=== PATIENT | male | born 1950 | race Caucasian/White ===

== ENCOUNTER 2016-12-10 04:47 | Inpatient (IN) | payer BC, OTHER ==
[2016-11-15 12:56] VITALS: BMI 38.0
--- NOTE | 2016-11-15 13:43 | PAT Medication Instructions ---
Service Date November 15, 2016. Current Home Medication List Canagliflozin (Invokana), 1 TAB PEG QAM Fluticasone Propionate (Nasal) (Flonase Allergy Relief), 2 SPRAY ELLIOT QAM Furosemide (Lasix), 20 MG PO BID Glipizide (Glucotrol), 5 MG PO QAM Glycopyrrolate (Glycopyrrolate), 1 TAB PO BID Krill Oil (Krill Oil), 1 CAP PO QPM Liraglutide (Victoza), 1.2 MG SQ QAM Meloxicam (Mobic), 15 MG PO QAM Sitagliptin Phosphate (Januvia), 100 MG PO QPM [Claritin D], 1 TAB PO QAM [Clotrimazole Beta Cr], 1 APPLN TOP UD PRN for PRN [Dr.cherry Rustam Corbett], 1 PKT PO QAM Medication Instructions For Your Scheduled Surgery Dr.Cherry Rustam Corbett 1 PKT PO QAM (take as directed) - Hold the following medications 2 weeks prior to surgery: Krill Oil (Krill Oil), 1 CAP PO QPM - Hold the following medications 7-10 days prior to surgery per surgeon instructions: Meloxicam (Mobic), 15 MG PO QAM - Hold the following medications 24 hours prior to surgery: Clotrimazole Beta Cr, 1 APPLN TOP UD PRN for PRN - Hold the following medications the morning of surgery: Sitagliptin Phosphate (Januvia), 100 MG PO QPM Claritin D 1 TAB PO QAM Glycopyrrolate (Glycopyrrolate), 1 TAB PO BID Glipizide (Glucotrol), 5 MG PO QAM Furosemide (Lasix), 20 MG PO BID Canagliflozin (Invokana), 1 TAB PO QAM - Take the following medications the morning of surgery with a sip of water: Liraglutide (Victoza), 1.2 MG SQ QAM Fluticasone Propionate (Nasal) (Flonase Allergy Relief), 2 SPRAY ELLIOT QAM - Take the following medications as scheduled the night before surgery: Glycopyrrolate (Glycopyrrolate), 1 TAB PO BID Furosemide (Lasix), 20 MG PO BID If you have any questions please call us at [phone] or [phone] ( [place]) or [phone]
--- NOTE | 2016-11-15 14:50 | DIAGNOSTIC IMAGING REPORT ---
CHEST 2 VIEWS ROUTINE HISTORY: Preop. COMPARISON: None. FINDINGS: No focal lung consolidations to suggest pneumonia. No evidence for pulmonary edema. Degenerative changes within the thoracic spine. No pleural effusions. No pneumothorax. The right lung is clear. Possible 8 mm nodule within the left midlung zone. The heart is normal in size. IMPRESSION: Possible 8 mm nodule within the left midlung zone. Recommend shallow oblique views of the chest for further evaluation. Otherwise, no acute process within the chest. Electronically signed by: Fernando Banda M.D. 11/15/2016 2:49 PM Dictated Date/Time: 11/15/2016 2:47 PM
[2016-11-15 14:52] LABS: URINE APPEARANCE CLEAR (CLEAR); URINE BILIRUBIN NEG (NEG); URINE COLOR YELLOW; URINE NITRITE NEG (NEG); URINE PH 6.5 (4.5-7.5); URINE SPECIFIC GRAVITY 1.029 (1.000-1.030); UROBILINOGEN NEG (NEG); ZZUR CULT IF INDIC CLEAN CATCH NO
[2016-11-15 14:53] LABS: MANUAL MICROSCOPIC REQUIRED? NO; REVIEW REQ? NO
[2016-11-15 14:56] LABS: PARTIAL THROMBOPLASTIN RATIO 1.2; PROTHROMBIN TIME (PATIENT) 10.9 SECONDS (9.0-12.0)
--- NOTE | 2016-12-07 12:57 | HISTORY & PHYSICAL EXAMINATION ---
DATE OF ADMISSION: 12/10/2016 CHIEF COMPLAINT: Right hip pain. HISTORY OF PRESENT ILLNESS: Bob is a 66-year-old male with a 1-year history of right hip pain. The patient rates his pain as 10/10. He has pain with his daily activities. He has limited standing and walking tolerance. Pain is worse with weightbearing. The patient takes anti-inflammatories with minimal relief. He is unable to exercise due to the pain. He has failed conservative treatment and is scheduled for right hip replacement. PAST MEDICAL HISTORY: Diabetes with an A1c of 7.8 and hypertension. He denies heart disease or DVT. PAST SURGICAL HISTORY: Hernia repair, bilateral knee arthroscopy, and bilateral wrist surgery. SOCIAL HISTORY: The patient denies alcohol or tobacco use. He lives in a single story home. He lives alone and is retired. FAMILY HISTORY: Negative for DVT. MEDICATIONS: Januvia 100 mg daily, glycopyrrolate 1 mg twice daily, Invokana 300 mg daily, furosemide 20 mg b.i.d., glipizide 5 mg daily, Claritin 1 tablet daily, meloxicam 15 mg daily, Krill oil 1 daily, fluticasone 50 mcg, and Victoza 1.2 mg daily. ALLERGIES: PENICILLIN AND SULFA. REVIEW OF SYSTEMS: See HPI. Ten other systems reviewed, all negative. PHYSICAL EXAMINATION: VITAL SIGNS: Height 5 feet 9 inches, weight 264 pounds, and BMI is 39. GENERAL: This is a well-developed and well-nourished male, who is alert and oriented x3. Mood and affect are appropriate. HEENT: Normocephalic and atraumatic. Mucous membranes are moist and intact. NECK: Supple without lymphadenopathy. HEART: Regular rate and rhythm without murmurs, rubs or gallops. LUNGS: Clear to auscultation without wheezes or rhonchi. ABDOMEN: Soft and nontender. Bowel sounds are equal and active. EXTREMITIES: No ecchymosis, redness or warmth. Log roll of the hip reproduces the pain in the groin. Range of motion is decreased. He is neurovascularly intact with +5/5 strength. He has +1 distal edema. X-RAY: AP and lateral views show joint space narrowing and osteophyte formation of the right hip. IMPRESSION: 1. Degenerative joint disease, right hip. 2. Diabetes type 2. 3. Morbid obesity. PLAN: The patient will be admitted for a right total hip arthroplasty. We will plan on aspirin for DVT prophylaxis. PCP is Dr. Ashwin Rey at [facility]. He will need home therapy postoperatively.
[~2016-12-10] VITALS: Ht 177.8 cm; Wt 116.0 kg
[2016-12-10] VITALS (11 sets, daily range): BP systolic 115–144; BP diastolic 70–94; PULSE 88–107; TEMP 36.6–37.4; O2SAT 78–98; Ht 177.8 cm; Wt 116.0 kg
[~2016-12-10 04:47] MED LIST: CANA1TAB3 PEG; CLARITIN D PO; FLUT0.15 NAE; FURO-85 PO; GLIP5TAB11 PO; GLYC1TAB19 PO; KRIL1000 PO; LIRA18IN SQ; MELO7.5T5 PO; SITA100T3 PO; [UNRECOGNIZED DRUG - OTHER] PO; [UNRECOGNIZED DRUG - OTHER] TOP
[2016-12-10] MEDS ORDERED: POLYMYXIN B SULFATE 100,000 UNITS in NSS 100ML IR SCH (06:00)
[2016-12-10] MEDS ORDERED: OXYCODONE HCL 10 MG TABCR (OXYCONTIN) PO SCH (06:00)
[2016-12-10] MEDS ORDERED: GABAPENTIN 300 MG CAP PO SCH (06:00)
[2016-12-10] MEDS ORDERED: METOCLOPRAMIDE HCL 10 MG TAB PO SCH (06:00)
[2016-12-10] MEDS ORDERED: ROPIVACAINE 5MG/ML 30 ML 150 MG, BUPIVACAINE/EPINEPHR 0.5% MPF 30 ML, KETOROLAC TROMETH... INFIL SCH ×6 (06:00)
[2016-12-10] MEDS ORDERED: VANCOMYCIN INJ 400 MG in NSS 100ML IR SCH (06:00)
[2016-12-10] MEDS ORDERED: CeleBREX 200 MG CAP PO SCH (06:00)
[2016-12-10] MEDS ORDERED: FAMOTIDINE 20 MG TAB PO SCH (06:00)
[2016-12-10] MEDS ORDERED: LACTATED RINGER'S 1000ML 1,000 ML IV SCH (06:00)
[2016-12-10] MEDS ORDERED: DEXAMETHASONE 4 MG TAB PO SCH (06:00)
[2016-12-10] MEDS ORDERED: ACETAMINOPHEN 500 MG TAB PO SCH (06:00)
[2016-12-10] MEDS ORDERED: CEFAZOLIN 2000 MG/60 ML D5W 60 ML IV SCH (06:00)
[2016-12-10] MEDS: TRANEXAMIC ACID INJ 1,000 MG in SODIUM CHLORIDE 0.9% 100ML 100 ML IV SCH ×2 (06:29→10:47)
[2016-12-10] MEDS ORDERED: POVIDONE-IODINE OP SOLN 30 ML BTL ONE (06:30)
[2016-12-10] MEDS ORDERED: ORTHO JOINT ANESTHETIC ONE (06:30)
[2016-12-10] MEDS ORDERED: BACITRACIN 50000 UNIT VIAL ONE (06:30)
[2016-12-10] MEDS ORDERED: MIDAZOLAM HCL 1 MG/ML 2ML VIAL ONE ×5 (06:33→09:13)
[2016-12-10] MEDS ORDERED: FENTANYL CITRATE INJ 50 MCG/1 ML 2 ML VIAL ONE (06:35)
--- NOTE | 2016-12-10 06:47 | History & Physical Bridge Note ---
H&P Re-Evaluation Bridge Note: I have examined the patient, reviewed the History & Physical and in the interval since the performance of the History & Physical I have noted the following changes of clinical significance: No changes noted
[2016-12-10] MEDS ORDERED: ONDANSETRON INJ 2 MG/ML 2 ML VIAL IV PRN ×2 (07:15→08:45)
[2016-12-10] MEDS ORDERED: ATROPINE SULFATE 0.1 MG/ML 5ML SYR IV PRN (07:15)
[2016-12-10] MEDS ORDERED: EpHEDrine SULFATE INJ 50 MG/ML AMP IV PRN (07:15)
[2016-12-10] MEDS ORDERED: FENTANYL CITRATE INJ 50 MCG/1 ML 2 ML VIAL IV PRN (07:15)
--- NOTE | 2016-12-10 08:40 | [facility] Post Operative Brief Note ---
Immediate Operative Summary Operative Date Dec 10, 2016. Pre-Operative Diagnosis Right Hip Degenerative Joint Disease Post-Operative Diagnosis Right Hip Degenerative Joint Disease Procedure(s) Performed Right Total Hip Arthroplasty, Direct Anterior Approach Surgeon Dr. Jorge Frias Instrument Calibrator Surgeon(s) Nyasia Jimenez PA-C Estimated Blood Loss 200 mL Findings severe dz Specimens A: Right Femoral Head Complication(s) None Disposition Recovery Room / PACU
[2016-12-10] MEDS ORDERED: BISACODYL 10 MG SUPP PR PRN (08:45)
[2016-12-10] MEDS ORDERED: SOD PHOSPHATE/SOD BIPHOSPHATE ENEMA 132 ML BTL PR PRN (08:45)
[2016-12-10] MEDS ORDERED: CLOTRIMAZOLE 1% CR 15 GM TUBE EXT PRN (08:45)
[2016-12-10] MEDS ORDERED: METOCLOPRAMIDE HCL INJ 5 MG/ML 2 ML VIAL IV PRN (08:45)
[2016-12-10] MEDS ORDERED: ALUMINUM/MAGNESIUM/SIMETH (MAALOX MAX) 30 ML UDC PO PRN (08:45)
[2016-12-10] MEDS ORDERED: DiphenhydrAMINE HCL 50 MG/ML VIAL IV PRN (08:45)
[2016-12-10] MEDS ORDERED: OXYCODONE HCL IR 5 MG TAB (IMMEDIATE RELEASE) PO PRN (08:45)
[2016-12-10] MEDS ORDERED: MoRPHine SULFATE 2 MG/ML CARP IV PRN (08:45)
[2016-12-10] MEDS ORDERED: ZOLPIDEM TARTRATE 5 MG TAB PO PRN (08:45)
[2016-12-10] MEDS ORDERED: MAGNESIUM HYDROXIDE SUSP 30 ML UDC PO PRN (08:45)
--- NOTE | 2016-12-10 08:52 | DIAGNOSTIC IMAGING REPORT ---
RIGHT HIP UNILATERAL 1 VIEW CLINICAL HISTORY: RT ANTERIOR Right COMPARISON: None. DISCUSSION: Total right hip replacement. Good contact between prosthetic and underlying bone. Expected soft tissue postoperative change. IMPRESSION: Anatomic alignment status post total right hip replacement Electronically signed by: Yasmany Bryant M.D. 12/10/2016 8:51 AM Dictated Date/Time: 12/10/2016 8:47 AM
[2016-12-10] MEDS ORDERED: NON-FORMULARY MEDICATION (Canagliflozin (Invokana) 1 TAB) PEG SCH (09:00)
[2016-12-10] MEDS ORDERED: LIRAGLUTIDE 1.2 MG SQ SCH (09:00)
[2016-12-10] MEDS ORDERED: PHARMACY GLYCEMIC MGMT CONSULT PRN (09:22)
[2016-12-10] MEDS ORDERED: GLUCAGON FOR INJ 1 MG VIAL SQ PRN (09:30)
[2016-12-10] MEDS ORDERED: GLUCOSE 10 TABS/TUBE PO PRN (09:30)
[2016-12-10] MEDS ORDERED: DEXTROSE 50% 50 ML SYR IV PRN (09:30)
[2016-12-10] MEDS ORDERED: GLUCOSE 40% GEL 15 GM TUBE PO PRN (09:30)
--- NOTE | 2016-12-10 09:38 | Anesthesiology Progress Note ---
Anesthesia Post Op Note Date & Time Dec 10, 2016 at 09:38 Vital Signs Pain Intensity: 0 Vital Signs Past 12 Hours Date Time Temp Pulse Resp B/P (MAP) Pulse Ox O2 Delivery O2 Flow Rate FiO2 12/10/16 09:30 36.6 93 16 125/68 97 Nasal Cannula 2 12/10/16 09:20 94 16 120/66 100 Nasal Cannula 2 12/10/16 09:10 97 16 123/65 94 Nasal Cannula 2 12/10/16 09:03 37.4 97 16 116/65 99 Nasal Cannula 2 12/10/16 05:38 37 98 20 130/94 93 Room Air Notes Mental Status: alert / awake / arousable, participated in evaluation Pt Amnestic to Procedure: Yes Nausea / Vomiting: adequately controlled Pain: adequately controlled Airway Patency, RR, SpO2: stable & adequate BP & HR: stable & adequate Hydration State: stable & adequate Neuraxial Anesthesia: was administered, sensory block is resolving Anesthetic Complications: no major complications apparent
--- NOTE | 2016-12-10 10:06 | DIAGNOSTIC IMAGING REPORT ---
RIGHT PELVIS/UNILATERAL HIP 1 VIEW CLINICAL HISTORY: IN PACU - A/P PELVIS and LATERAL HIP INCLUDING ALL OF IMPLANT Right postoperative evaluation COMPARISON: None. DISCUSSION: Status post total right hip replacement. Good contact between prosthetic and underlying bone. Surgical drains are in position. Expected soft tissue postoperative change IMPRESSION: Anatomic alignment status post total right hip replacement. Electronically signed by: Yasmany Bryant M.D. 12/10/2016 10:05 AM Dictated Date/Time: 12/10/2016 10:04 AM
[2016-12-10] MEDS: SODIUM CHLORIDE 0.9% 1000ML 1,000 ML IV SCH ×2 (10:20→19:42)
--- NOTE | 2016-12-10 10:59 | Pharmacy Progress Note ---
Glycemic Control Intl Consult Date of Service Dec 10, 2016. Scope Glycemic Pharmacist consulted by Dr Frias on 12/10/16 for glycemic control and to write orders per [facility] inpatient glycemic control protocol Objective Weight (Kilograms): 116 Accuchecks BSG (last 24hrs): Test 12/10/16 05:38 12/10/16 09:10 Bedside Glucose 130 mg/dl (70-99) 148 mg/dl (70-99) Recent Pertinent Medications Outpatient Anti-diabetic Regimen: * Invokana 300mg PO daily * Glipizide 5mg PO daily * Januvia 100mg PO PM * Victoza 1.2mg SQ daily in AM Risk Factors for Insulin Resistance: * Steroids preop * Recent Surgery * Diet * Baseline insulin resistance Assessment & Plan ASSESSMENT: * Pt is maintained on multiple oral and SQ antidiabetic agents as an outpatient with unknown degree of control * Oral agents are not recommended for inpatient use d/t drug interactions, changing PO intake, and difficulty titrating for acute hyper/hypoglycemia. ADA recommends re-initiating outpatient oral agents 1-2 days prior to discharge if/ when appropriate if they were held on admission. * Will order A1c per protocol * Will hold oral agents for admission and utilize SQ basal bolus insulin regimen which is the recommended regimen for inpatient glycemic control. * Will initiate weight based insulin dosing for insulin alexsandra patient and titrate based on BSG trends. * ADA & AACE recommend a goal blood sugar range 140-180 mg/dl for the majority of critically ill & non-critically ill patients. However, more stringent targets may be selected in individual cases. Will utilize more stringent goal of 110-140mg/dl based on patient age & comorbidities. Additionally, tighter glycemic control is warranted to facilitate healing post-operatively. PLAN FOR INPATIENT GLYCEMIC CONTROL: * Outpatient antidiabetic agents * Hold all agents except Januvia 100mg PO PM secondary to low hypo risk * Basal insulin * Lantus 10 units SQ daily * Bolus insulin * NovoLog per scale ACHS or Q6hrs while NPO. Additional check + coverage tonight at 0200 for possible sustained hyperglycemia * Goal Range: Low 110 mg/dL - High 140 mg/dL * Correction Factor: 30 mg/dL/unit * Nutritional / Prandial insulin per carb ratio of 1 unit per 10 grams CHO consumed * A1c with AM labs * Add to d/c instructions to be communicated to PCP for further outpatient antidiabetic regimen adjustments. * Please note that the plan above was derived based on current level of insulin resistance and hospital stress. These recommendations are appropriate for inpatient admission only. Plan of care upon discharge will need to be reassessed to avoid potential outpatient hypo/hyperglycemia. Thank you.
[2016-12-10] MEDS: TRAMADOL HCL 50 MG TAB PO PRN (11:06)
[2016-12-10] MEDS ORDERED: PNEUMOCOCCAL POLYSACCHARIDES 25 MCG/0.5 ML VIAL/SYR IM. ONE (11:15)
[2016-12-10] MEDS ORDERED: PNEUMOCOCCAL ADMINISTRATION CHARGE ONE (11:15)
[2016-12-10 11:23] LABS: CREATININE 0.85 mg/dl (0.60-1.40)
--- NOTE | 2016-12-10 11:31 | Medical Consult ---
Consultation Note Date of Service Dec 10, 2016. Consultation Note consult dictated [id number]
[2016-12-10] MEDS ORDERED: INSULIN GLARGINE SOLOSTAR 100 UNITS/ML 3 ML PEN SC SCH (12:00)
[2016-12-10] MEDS ORDERED: INSULIN ASPART 100 UNITS/ML 3 ML PEN SC SCH (12:00)
--- NOTE | 2016-12-10 12:26 | INTERNAL MEDICINE CONSULTATION ---
DATE OF ADMISSION: 12/10/2016 This is a level 2 inpatient consultation, 25 minutes. CHIEF COMPLAINT: S/P right hip surgery, request for medical management. PHYSICIAN REQUESTING CONSULTATION: Dr. Frias. REASON FOR CONSULTATION: Postop medical management. HISTORY OF PRESENT ILLNESS: The patient is a 66-year-old white male with a significant past medical history of diabetes, A1c 7.8, hypertension, admitted to Dr. Frias's service because of right hip pain. The patient had chronic right hip pain for more than 1 year, 04/09 before the procedure. The patient had right hip degenerative disease. He had a procedure done this morning by Dr. Frias, which was right hip degenerative joint disease, had right total hip arthroplasty. The patient is postop now. He is awake, alert, and oriented, pleasant, conversational, follows all commands. No acute distress. No any complaint. Denied fever or chill. Denied cough, sputum, or shortness of breath. Denied palpitations, lower extremity swelling. Denied chest pain. Denied nausea, vomiting, abdominal pain, diarrhea, or constipation. Denied dysuria, urgency and frequencies. Denied facial droop, slurry speeches or local weakness. PAST MEDICAL HISTORY: Include, like I mentioned diabetic, hypertension. PAST SURGICAL HISTORY: Include, hernia repair, bilateral knee arthroscope and bilateral wrists surgery and now right total hip arthroplasty. SOCIAL HISTORY: Denied alcohol abuse disorder, denied illicit drug abuse. Denied tobacco abuse. FAMILY HISTORY: Negative for DVT. MEDICATIONS: Taking at home include, Januvia 100 mg p.o. daily, glycopyrrolate 1 gram p.o. b.i.d., Invokana 300 mg p.o. daily, furosemide 20 mg p.o. b.i.d., glipizide 5 mg p.o. daily, glycopyrrolate 1 tab p.o. daily, meloxicam 15 mg p.o. daily, Krill oil 1 tab p.o. daily, fluticasone 50 mcg inhaler and then Victoza 1.2 injection daily. ALLERGIES: ALLERGY TO PENICILLIN AND SULFA. REVIEW OF SYSTEMS: Please see HPI. PHYSICAL EXAMINATION: GENERAL: The patient is a white male, awake, alert and oriented: VITAL SIGNS: Temperature is 36.6, pulse 93, respiration rate 16, blood pressure 144/86, pulse ox is 95% on room air. NEUROLOGIC: The patient is a white male, awake, alert and oriented, pleasant, conversational, follows all commands. HEAD: Normocephalic. EYES: Pupils equal, round, responds to light, EARS: Ear was normal. NOSE: Normal. NECK: Supple. Thyroid no enlargement. Trachea midline. HEART: Regular rhythm. S1, S2. LUNGS: Decreased breathing sounds. There was no wheezing, rhonchi or crackles. ABDOMEN: Soft, nontender. Bowel sound was positive. GENITOURINARY AND RECTAL: Deferred. Bilateral CVA was nontender. BILATERAL LOWER EXTREMITIES: No swelling. Zion's sign was negative. Right hip S/P procedure, local in dressing. NEUROLOGIC: Cranial nerves II-XII was intact. There was no deficits. LABORATORY STUDIES: PT/INR was 10/1 on 11/15/2016. blood glucose 135, creatinine 0.8. ASSESSMENT AND PLAN: A 66-year-old white male with the conditions below. 1. Right hip chronic arthritis status post total right hip arthroplasty. This will be managed by the primary team, the pain management, deep vein thrombosis prophylaxis, physical therapy, occupational therapy, discharge plan will be per primary doctor too. 2. History of hypertension. 3. History of diabetes. We will continue home medication, which has been ordered by the primary team. I will add insulin sliding scale. 4. Tomorrow morning labs were ordered as well. 5. Discussed with the patient about the care plan. I answered all the questions. Thank you for the chance to involve in the care, we will continue to follow up. VITA
[2016-12-10] MEDS: MULTIVITAMIN TAB PO SCH (12:29)
[2016-12-10] MEDS: INSULIN GLARGINE SOLOSTAR 100 UNITS/ML 3 ML PEN SC SCH (12:34)
[2016-12-10] MEDS: INSULIN ASPART 100 UNITS/ML 3 ML PEN SC SCH ×3 (12:36→21:37)
[2016-12-10] MEDS ORDERED: TRANEXAMIC ACID INJ 1,000 MG in SODIUM CHLORIDE 0.9% 100ML 100 ML IV ONE (14:00)
[2016-12-10] MEDS: KETOROLAC TROMETHAMINE 30 MG/ML VIAL IV. SCH ×2 (14:45→19:49)
[2016-12-10] MEDS: CEFAZOLIN IV 2,000 MG in DEXTROSE 5% 50ML 50 ML IV SCH ×2 (16:22→23:22)
--- NOTE | 2016-12-10 17:34 | OPERATIVE REPORT ---
DATE OF OPERATION: 12/10/2016 PREOPERATIVE DIAGNOSIS: Degenerative arthritis, right hip. POSTOPERATIVE DIAGNOSIS: Same. PROCEDURE: Right total hip replacement. SURGEON: Jorge Frias MD CONTROL ROOM AGENT: MEHDI Jade ANESTHESIA: Spinal. BLOOD LOSS: 200 mL. REPLACEMENT FLUIDS: 1800 mL of crystalloid. DRAINS: Hemovac x2. CULTURES: None. COMPLICATIONS: None. COMPONENTS USED: [employer] Polar hip system: Acetabulum size 54, femur size 3 lateral offset, femoral head 0, neck length 36 mm. NOTE: MEHDI Jade was present and assisted throughout due to the complicated nature of this case. She helped with preparation and set up, first assisted throughout and personally closed the capsule, the fascial, subcutaneous and skin layers and applied the postoperative dressing. DESCRIPTION OF PROCEDURE: Satisfactory spinal, the patient was supine. The right hip was placed in the traction device and the left leg in the well leg santiago, right leg was prepared with ChloraPrep and draped sterilely. Following a surgical time-out, an anterior approach in the interval between the sartorius and tensor muscles was completed, the circumflex femoral vessels were identified and ligated. An anterior capsulotomy was performed exposing an arthritic femoral neck and head. The femoral neck and head were trimmed and removed. The acetabular self-retaining retractor was placed. Acetabular reaming was completed and under fluoroscopic guidance, a 54 shell was impacted into an anatomic position and secured with a dome screw. Local anesthetic was placed followed by the irrigation and the polyethylene liner. The femur was placed in a position of external rotation, extension and adduction. Femoral canal was prepared up to the size 3. A trial reduction with a 0 neck length head using fluoroscopy showed good fit and fill of the proximal canal and hoahaoism of leg lengths using fluoroscopic landmarks. The hip was dislocated, the trial component was removed, the final implant was placed and the hip was irrigated. A Betadine soak was performed. After 15 minutes, the Betadine was irrigated. The capsule was closed with 1-0 Vicryl interrupted. A drain was placed. Subcutaneous tissues were closed with 2-0 Vicryl and the skin with a running subcuticular stitch of 3-0 V-Loc. Dermabond and a dry dressing were applied. The patient was returned to his bed in stable condition. I attest to the content of the Intraoperative Record and any orders documented therein. Any exception s are noted below.
[2016-12-10] MEDS: SITAGLIPTIN 100 MG TAB PO SCH (21:13)
[2016-12-10] MEDS: ASPIRIN 81 MG ECTAB PO SCH (21:14)
[2016-12-10] MEDS: GLYCOPYRROLATE 1 MG TAB PO SCH (21:15)
[2016-12-10] MEDS: FUROSEMIDE 20 MG TAB PO SCH (21:15)
[2016-12-10] MEDS: ACETAMINOPHEN 500 MG TAB PO SCH (21:16)
[2016-12-10] MEDS: SENNA 8.6 MG TAB PO SCH (21:18)
[2016-12-11] MEDS: TRAMADOL HCL 50 MG TAB PO PRN ×3 (00:12→17:46)
[2016-12-11] MEDS: KETOROLAC TROMETHAMINE 30 MG/ML VIAL IV. SCH ×4 (01:58→20:48)
[2016-12-11] MEDS ORDERED: INSULIN ASPART 100 UNITS/ML 3 ML PEN SC SCH (02:00)
[2016-12-11 04:34] VITALS: BP 140/82; PULSE 88; TEMP 36.9; O2SAT 95
[2016-12-11] MEDS: SODIUM CHLORIDE 0.9% 1000ML 1,000 ML IV SCH (05:33)
[2016-12-11] MEDS: ACETAMINOPHEN 500 MG TAB PO SCH ×3 (05:34→20:50)
[2016-12-11 07:45] VITALS: BP 100/50; PULSE 64; TEMP 36.6; O2SAT 98
--- NOTE | 2016-12-11 07:53 | Progress Note ---
Subjective Date of Service: Dec 11, 2016. Objective Vital Signs Date Time Temp Pulse Resp B/P (MAP) Pulse Ox O2 Delivery O2 Flow Rate FiO2 12/11/16 07:45 36.6 64 16 100/50 (67) 98 Room Air 12/11/16 04:34 36.9 88 16 140/82 (101) 95 Room Air 12/10/16 23:34 36.9 91 18 143/78 (99) 93 Room Air 12/10/16 23:20 Room Air 12/10/16 20:18 37.4 88 18 115/74 (88) 95 Room Air 12/10/16 16:00 95 Room Air 12/10/16 15:09 37.2 104 18 133/74 (93) 95 Room Air 12/10/16 13:00 37.0 107 18 137/76 (96) 93 Room Air 12/10/16 12:00 103 18 139/70 (93) 98 2.0 12/10/16 11:59 78 Nasal Cannula 2.0 12/10/16 11:00 93 16 144/86 (105) 95 Nasal Cannula 2.0 12/10/16 10:30 96 16 143/77 (99) 95 Nasal Cannula 2.0 12/10/16 10:00 Room Air 12/10/16 10:00 36.6 95 18 122/71 (88) 96 Nasal Cannula 2.0 12/10/16 10:00 Nasal Cannula 12/10/16 09:50 36.6 94 16 117/67 93 Nasal Cannula 2 12/10/16 09:40 36.6 94 16 115/68 93 Nasal Cannula 2 12/10/16 09:30 36.6 93 16 125/68 97 Nasal Cannula 2 12/10/16 09:20 94 16 120/66 100 Nasal Cannula 2 12/10/16 09:10 97 16 123/65 94 Nasal Cannula 2 12/10/16 09:03 37.4 97 16 116/65 99 Nasal Cannula 2 Laboratory Results Last 24 Hours Test 12/10/16 09:10 12/10/16 10:47 12/10/16 11:09 12/10/16 17:00 Bedside Glucose 148 mg/dl 135 mg/dl 146 mg/dl Creatinine 0.85 mg/dl Est Creatinine Clear Calc Drug Dose 112.0 ml/min Estimated GFR () 106.7 Estimated GFR (Non- 92.1 Test 12/10/16 20:55 12/11/16 02:03 12/11/16 04:44 Bedside Glucose 167 mg/dl 121 mg/dl Assessment and Plan 66M with right hip replacement by Dr Frias with diabetes and htn Hypertension on lasix blood pressure in acceptable control Diabetes managed by glycemic management consult
[2016-12-11 08:03] LABS: BASO % 0.1 %; BASO ABS # 0.01 K/uL (0-0.2); COMPLETE YES; EOS % 0.2 %; HEMATOCRIT 37.8 % (42-52); IG% 0.3 %; LYMPH % 8.9 %; LYMPH ABS # 1.09 K/uL (1.2-3.4); MEAN CELL VOLUME 85.5 fL (80-100); MEAN CORPUSCULAR HEMOGLOBIN 28.7 pg (25-34); MEAN CORPUSCULAR HGB CONC 33.6 g/dl (32-36); MEAN PLATELET VOLUME 9.9 fL (7.4-10.4); MONO % 8.6 %; NEUT % 81.9 %; PLATELET COUNT 228 K/uL (130-400); RED BLOOD COUNT 4.42 M/uL (4.7-6.1)
--- NOTE | 2016-12-11 08:07 | Orthopedic Progress Note ---
Orthopedic Progress Note Date of Service Dec 11, 2016. Subjective Post OP Day: 1 Reports: feeling well, Denies: chest pain, SOB, nausea / vomiting, light headedness, calf pain Objective calves soft nontender, N/V intact, hip located, dressing C/D/I, A&O x3, toes mobile, hemovac drainage (325/150cc per shift) Date Time Temp Pulse Resp B/P (MAP) Pulse Ox O2 Delivery O2 Flow Rate FiO2 12/11/16 07:45 36.6 64 16 100/50 (67) 98 Room Air 12/11/16 04:34 36.9 88 16 140/82 (101) 95 Room Air 12/10/16 23:34 36.9 91 18 143/78 (99) 93 Room Air 12/10/16 23:20 Room Air 12/10/16 20:18 37.4 88 18 115/74 (88) 95 Room Air 12/10/16 16:00 95 Room Air 12/10/16 15:09 37.2 104 18 133/74 (93) 95 Room Air 12/10/16 13:00 37.0 107 18 137/76 (96) 93 Room Air 12/10/16 12:00 103 18 139/70 (93) 98 2.0 12/10/16 11:59 78 Nasal Cannula 2.0 12/10/16 11:00 93 16 144/86 (105) 95 Nasal Cannula 2.0 12/10/16 10:30 96 16 143/77 (99) 95 Nasal Cannula 2.0 12/10/16 10:00 Room Air 12/10/16 10:00 36.6 95 18 122/71 (88) 96 Nasal Cannula 2.0 12/10/16 10:00 Nasal Cannula 12/10/16 09:50 36.6 94 16 117/67 93 Nasal Cannula 2 12/10/16 09:40 36.6 94 16 115/68 93 Nasal Cannula 2 12/10/16 09:30 36.6 93 16 125/68 97 Nasal Cannula 2 12/10/16 09:20 94 16 120/66 100 Nasal Cannula 2 12/10/16 09:10 97 16 123/65 94 Nasal Cannula 2 12/10/16 09:03 37.4 97 16 116/65 99 Nasal Cannula 2 Laboratory Results 24 Hours: Test 12/11/16 07:26 White Blood Count 12.30 K/uL Red Blood Count 4.42 M/uL Hemoglobin 12.7 g/dL Hematocrit 37.8 % Mean Corpuscular Volume 85.5 fL Mean Corpuscular Hemoglobin 28.7 pg Mean Corpuscular Hemoglobin Concent 33.6 g/dl Platelet Count 228 K/uL Mean Platelet Volume 9.9 fL Neutrophils (%) (Auto) 81.9 % Lymphocytes (%) (Auto) 8.9 % Monocytes (%) (Auto) 8.6 % Eosinophils (%) (Auto) 0.2 % Basophils (%) (Auto) 0.1 % Neutrophils # (Auto) 10.07 K/uL Lymphocytes # (Auto) 1.09 K/uL Monocytes # (Auto) 1.06 K/uL Eosinophils # (Auto) 0.03 K/uL Basophils # (Auto) 0.01 K/uL Assessment & Plan Assessment: POD#1 sp right total hip, direct anterior Inhouse Planning Pain Management: PO Tylenol, Oxy IR DVT Prophylaxis: TEDs, SCDs, ASA Discharge Planning Discharge Planning: home with home health
[2016-12-11] MEDS: ASPIRIN 81 MG ECTAB PO SCH ×2 (08:29→20:48)
--- NOTE | 2016-12-11 08:29 | Pharmacy Progress Note ---
Glycemic Control: Progress Nt Date of Service Dec 11, 2016. Scope Glycemic Pharmacist consulted by Dr Frias on 12/10/16 for glycemic control and to write orders per [facility] inpatient glycemic control protocol. Objective Accuchecks BSG (last 24hrs): Test 12/10/16 09:10 12/10/16 11:09 12/10/16 17:00 12/10/16 20:55 Bedside Glucose 148 mg/dl (70-99) 135 mg/dl (70-99) 146 mg/dl (70-99) 167 mg/dl (70-99) Test 12/11/16 02:03 12/11/16 07:26 12/11/16 07:51 Bedside Glucose 121 mg/dl (70-99) 126 mg/dl (70-99) Laboratory Data (last 24hrs) HbA1c: Item Value Date Time Hemoglobin A1c 6.9 % H 12/11/16 0726 Estimated Average Glucose 151 mg/dl 12/11/16 0726 Recent Pertinent Medications Outpatient Anti-diabetic Regimen: * Invokana 300mg PO daily * Glipizide 5mg PO daily * Januvia 100mg PO PM * Victoza 1.2mg SQ daily in AM Risk Factors for Insulin Resistance: * Steroids preop * Recent Surgery * Diet * Baseline insulin resistance Assessment & Plan ASSESSMENT: * See progress note from 12/10/16 for more background info, in short: * Pt receiving SQ basal bolus insulin regimen for hyperglycemia secondary to baseline DM (outpatient regimen on hold) & recent surgery * Patient is currently receiving an average of ~22 units of insulin per day * 10 units of basal insulin * 12 units of prandial/correctional insulin * BSGs ranging 121 - 167 mg/dl over the past 24hrs * Changes needed to insulin regimen: * AM Fasting BSG = 126 mg/dl. This is in slightly above goal range for patient based on inpatient targets and co-morbidities. However, pt to d/c in the next day or so and does not take basal insulin as an outpatient. Will not change/ increase dose to prevent hypo when outpatient regimen resumed at discharge. * Post-prandial BSGs are in range therefore no changes needed to CF/CR PLAN FOR INPATIENT GLYCEMIC CONTROL: Current regimen is yielding adequate glycemic control. Continue SQ basal bolus {+ Januvia} and pt may resume previous outpatient regimen at discharge. * Outpatient antidiabetic agents * Hold all agents except Januvia 100mg PO PM secondary to low hypo risk * Basal insulin * Lantus 10 units SQ daily * Bolus insulin * NovoLog per scale ACHS or Q6hrs while NPO. * Goal Range: Low 110 mg/dL - High 140 mg/dL * Correction Factor: 30 mg/dL/unit * Nutritional / Prandial insulin per carb ratio of 1 unit per 10 grams CHO consumed * A1c = 6.9% * Added to d/c instructions to be communicated to PCP for further outpatient antidiabetic regimen adjustments. * No changed needed to regimen at this time * Please note that the plan above was derived based on current level of insulin resistance and hospital stress. These recommendations are appropriate for inpatient admission only. Plan of care upon discharge will need to be reassessed to avoid potential outpatient hypo/hyperglycemia. Thank you.
[2016-12-11] MEDS: MULTIVITAMIN TAB PO SCH (08:30)
[2016-12-11] MEDS: PANTOprazole SOD 40 MG TAB PO SCH (08:30)
[2016-12-11 08:32] LABS: BUN/CREATININE RATIO 24.6 (10-20); MAGNESIUM 2.7 mg/dl (1.8-2.4); POTASSIUM 4.4 mmol/L (3.5-5.1)
[2016-12-11] MEDS: FLUTICASONE PROPIONATE NA SPR 16 GM BTL NAE SCH (08:32)
[2016-12-11] MEDS: INSULIN ASPART 100 UNITS/ML 3 ML PEN SC SCH ×4 (08:40→20:47)
[2016-12-11] MEDS: INSULIN GLARGINE SOLOSTAR 100 UNITS/ML 3 ML PEN SC SCH (08:41)
[2016-12-11 08:47] VITALS: O2SAT 95
[2016-12-11] MEDS: FUROSEMIDE 20 MG TAB PO SCH ×2 (08:53→17:42)
[2016-12-11] MEDS: GLYCOPYRROLATE 1 MG TAB PO SCH ×2 (08:54→20:49)
[2016-12-11 09:02] LABS: CALCIUM 8.3 mg/dl (8.5-10.1)
[2016-12-11 10:16] LABS: ESTIMATED AVERAGE GLUCOSE 151 mg/dl; HA1C FLAG Normal (Normal)
[2016-12-11 10:39] VITALS: BP 118/72; PULSE 78; O2SAT 96
[2016-12-11 15:34] VITALS: BP 113/72; PULSE 71; TEMP 36.9; O2SAT 96
[2016-12-11] MEDS: SENNA 8.6 MG TAB PO SCH (20:49)
[2016-12-11] MEDS: SITAGLIPTIN 100 MG TAB PO SCH (20:49)
[2016-12-11 23:03] VITALS: BP 146/77; PULSE 84; TEMP 36.5; O2SAT 94
[2016-12-12] MEDS: KETOROLAC TROMETHAMINE 30 MG/ML VIAL IV. SCH ×2 (01:04→07:38)
[2016-12-12] MEDS: ACETAMINOPHEN 500 MG TAB PO SCH (05:25)
[2016-12-12 07:30] VITALS: BP 122/72; PULSE 89; TEMP 36.6; O2SAT 98
--- NOTE | 2016-12-12 07:43 | Orthopedic Progress Note ---
Orthopedic Progress Note Date of Service Dec 12, 2016. Subjective Post OP Day: 2 Reports: feeling well, Denies: chest pain, SOB, nausea / vomiting, light headedness, calf pain Objective calves soft nontender, N/V intact, hip located, dressing C/D/I, A&O x3, toes mobile MILD BLOODY DRAINAGE FROM HEMOVAC SITE. Date Time Temp Pulse Resp B/P (MAP) Pulse Ox O2 Delivery O2 Flow Rate FiO2 12/12/16 00:45 Room Air 12/11/16 23:03 36.5 84 16 146/77 (100) 94 Room Air 12/11/16 17:30 Room Air 12/11/16 15:34 36.9 71 18 113/72 (86) 96 Room Air 12/11/16 10:39 78 96 12/11/16 08:47 95 Room Air 12/11/16 07:45 36.6 64 16 100/50 (67) 98 Room Air Assessment & Plan Assessment: POD#2 sp right total hip, direct anterior Inhouse Planning Pain Management: PO Tylenol, Oxy IR DVT Prophylaxis: TEDs, SCDs, ASA Discharge Planning Discharge Planning: home with home health ([facility] TODAY WITH HOME HEALTH)
[2016-12-12] MEDS ORDERED: SNK PO (07:44)
[2016-12-12] MEDS ORDERED: ACET-1138 PO (07:44)
[2016-12-12] MEDS ORDERED: ONDA8TAB6 PO (07:44)
[2016-12-12] MEDS ORDERED: RXC5 PO (07:44)
[2016-12-12] MEDS ORDERED: ASPEC81 PO (07:44)
--- NOTE | 2016-12-12 07:45 | Discharge Instructions ---
Discharge Instructions Date of Service Dec 12, 2016. Admission Reason for Admission: Right Degenerative Arthritis - Pelvis / Thigh Discharge Discharge Diagnosis / Problem: SP RIGHT TOTAL HIP, DIRECT ANTERIOR Discharge Goals Goal(s): Decrease discomfort, Improve function, Increase independence Activity Recommendations Activity Limitations: per Instructions/Follow-up section . Instructions / Follow-Up Instructions / Follow-Up ACTIVITY RECOMMENDATIONS: SELF CARE INSTRUCTIONS AFTER TOTAL HIP REPLACEMENT : Direct Anterior Approach Until the incision and soft tissues around your hip have healed, there is a possibility that the hip prosthesis could dislocate. A. Hip flexion ( Up & Down out of chair or steps ) may be difficult. This is normal. B. Numbness in front of the thigh is also normal for a few weeks. C. Use hand rails when walking on stairs. D. Wear low heeled shoes with non-slip soles. E. Be sure that your floors are free of things that could trip you - throw rugs , electrical cords, small objects. Avoid wet and waxed floors, especially with crutches and canes. F. Try to walk several times a day with rest periods between. G. Continue with all the exercises taught to you in the hospital. Again, make walking a part of your daily routine. SPECIAL CARE INSTRUCTIONS: VERY IMPORTANT TO READ AND REVIEW A. You may still be at risk for phlebitis and blood clots. 1. Wear surgical stockings (KAREN hose) for 2 weeks after surgery to improve circulation and reduce swelling. 2. Take Aspirin 81mg twice daily for 4 weeks or as directed by your doctor. This is your blood thinner. 3. High risk patients may be prescribed a stronger blood thinner if necessary. 4. If you are on Coumadin normally, your family doctor/counseling services manager should monitor your blood work. Expect a phone call the day of or the day after bloodwork is drawn to adjust your dosage. B. You must take antibiotics before having dental work, bladder, bowel and other surgery. Your doctor will provide you with a permanent card to carry describing precautions. C. Call [facility] if you have a fever, redness or swelling around the incision, cloudy drainage from incision, or sudden increase in pain in your hip, not relieved by your regular pain medication. D. Please call the office at if you have any concerns or questions about your operation or recovery. * YOU MAY SHOWER, NO TUB BATHS UNTIL CLEARED BY YOUR DOCTOR. - Keep an extra close eye on the top portion of your incision. Be sure to keep clean & dry. * WEAR KAREN HOSE 20 HOURS PER DAY FOR 2 WEEKS. * YOU MAY PROGRESS FROM A WALKER, TO A CANE, TO INDEPENDENT AT YOUR OWN PACE. * MOST PATIENTS WILL HAVE HOME NURSING FOR THERAPY. IF YOU DECIDE TO DO OUTPATIENT PHYSICAL THERAPY, PLEASE SCHEDULE THIS 3 TIMES PER WEEK. * DERMABOND Prineo- This is a mesh tape dressing that is covered with glue. It should remain in place until the incision is properly healed, usually 10-14 days. This dressing is designed to naturally slough off. You may trim the excess mesh tape as it peels off. Incision may be briefly wet in a shower. Dry immediately by blotting with a clean, dry towel. Do not bath or swim until instructed by your doctor. Do not scratch, rub, or pick at the dressing. Do not apply any topical ointments or lotions until dressing is completely removed and/or instructed by your doctor. There may be a small piece of suture material at one end of your incision. Do not pull or trim this. If it is bothersome or catching on clothing, you may cover it with a band-aid. FOLLOW UP VISIT: If appointment is not already scheduled: Please call [facility] to make a follow-up appointment for 2 weeks after your surgery at . Current Hospital Diet Patient's current hospital diet: Diabetes Type 2 Diet Discharge Diet Recommended Diet: Regular Diet Procedures Procedures Performed: Right Total Hip Arthroplasty, Direct Anterior Approach Pending Studies Studies pending at discharge: no Laboratory Results Hemoglobin A1c Test 12/11/16 07:26 Range/Units Estimated Average Glucose 151 mg/dl Hemoglobin A1c 6.9 H 4.5-5.6 % Medical Emergencies . Who to Call and When: Medical Emergencies: If at any time you feel your situation is an emergency, please call 911 immediately. . Non-Emergent Contact Non-Emergency issues call your: Surgeon . "Provider Documentation" section prepared by Nyasia Jimenez. . VTE Core Measure Inpt VTE Proph given/why not?: Other Anticoagulation, T.E.D. Stockings, SCD's [place] Drug Monitoring Program Search Results: patient reviewed within database, no issues identified
[2016-12-12] MEDS: FLUTICASONE PROPIONATE NA SPR 16 GM BTL NAE SCH (08:33)
[2016-12-12] MEDS: ASPIRIN 81 MG ECTAB PO SCH (08:33)
[2016-12-12] MEDS: MULTIVITAMIN TAB PO SCH (08:34)
[2016-12-12] MEDS: FUROSEMIDE 20 MG TAB PO SCH (08:34)
[2016-12-12] MEDS: GLYCOPYRROLATE 1 MG TAB PO SCH (08:35)
[2016-12-12] MEDS: PANTOprazole SOD 40 MG TAB PO SCH (08:35)
[2016-12-12] MEDS: INSULIN ASPART 100 UNITS/ML 3 ML PEN SC SCH ×2 (08:40→12:47)
[2016-12-12] MEDS: TRAMADOL HCL 50 MG TAB PO PRN (08:42)
[2016-12-12] MEDS ORDERED: ULT50X PO (08:45)
[2016-12-12 08:53] VITALS: O2SAT 98
[2016-12-12] MEDS: INSULIN GLARGINE SOLOSTAR 100 UNITS/ML 3 ML PEN SC SCH (09:30)
[2016-12-12 10:14] VITALS: BP 122/72; PULSE 89; TEMP 36.6; O2SAT 98
[2016-12-12 10:44] VITALS: BP 152/67; PULSE 97; O2SAT 95
== END 2016-12-12 13:20 | disposition home health service (06) | DRG 470 ==
LOC: C.ACU 04:47 → C.3E 08:43 → ENRESERV 09:23
PROVIDERS: ADMIT Orthopaedic Surgery; ATTEND Orthopaedic Surgery
PROC: 0SR90JA Replacement of Right Hip Joint with Synthetic Substitute, Uncemented, Open Approach (ICD-10-PCS; principal; 2016-12-10 07:00)
DX: M16.11 Unilateral primary osteoarthritis, right hip (principal); E11.9 Type 2 diabetes mellitus without complications; I10 Essential (primary) hypertension; E66.01 Morbid (severe) obesity due to excess calories; Z68.36 Body mass index [BMI] 36.0-36.9, adult; Z79.84 Long term (current) use of oral hypoglycemic drugs; Z79.899 Other long term (current) drug therapy